=== PATIENT | male | born 1980 | race African-American/Black ===

== ENCOUNTER 2021-10-12 10:00 | Inpatient (IN) | payer MEDICARE ==
[2021-10-12] VITALS (15 sets, daily range): BP systolic 91–113; BP diastolic 42–69
[~2021-10-12] VITALS: Ht 190.5 cm; Wt 63.5 kg
[2021-10-12] MEDS ORDERED: SODIUM CHLORIDE 0.9% 1000ML 1,000 ML IV SCH ×3 (10:30→14:00)
[2021-10-12] MEDS ORDERED: LACTATED RINGER'S 1,000 ML INJ ONE (10:30)
[2021-10-12 10:45] LABS: BASOPHILS # (AUTO) 0.1 (0.0-0.1); BASOPHILS % 1.3 % (0.0-1.0); HEMATOCRIT 32.5 % (38.2-49.6); HEMOGLOBIN 10.6 g/dL (14.0-18.0); LYMPHOCYTES # (AUTO) 0.3 (1.0-3.2); LYMPHOCYTES % 5.1 % (18.0-39.1); MEAN CORPUSCULAR HEMOGLOBIN 29.4 pg (28-32); MEAN CORPUSCULAR HGB CONC 32.6 g/dL (31-35); MEAN CORPUSCULAR VOLUME 90.3 fL (81-99); MONOCYTES # (AUTO) 0.6 (0.2-0.8); MONOCYTES % 11.6 % (4.4-11.3); NEUTROPHILS # (AUTO) 4.3 (2.1-6.9); NEUTROPHILS % 81.1 % (38.7-80.0); RED CELL DISTRIBUTION WIDTH 13.9 % (11.7-14.4)
[2021-10-12 10:52] LABS: PLATELET COUNT 31 x10e3/uL (140-360)
[2021-10-12 11:03] LABS: ALBUMIN 2.6 g/dL (3.5-5.0); ALBUMIN/GLOBULIN RATIO 0.6 (0.8-2.0); ANION GAP 16.4 mmol/L (8-16); CALCIUM 9.2 mg/dL (8.4-10.2); CREATININE, SERUM 1.8 mg/dL (0.72-1.25); POTASSIUM 5.4 mmol/L (3.5-5.1)
[2021-10-12] MEDS: CEFEPIME 1 GM in SODIUM CHLORIDE 0.9% 50ML 50 ML IV SCH ×2 (11:11→23:55)
[2021-10-12 11:37] LABS: BAND NEUTROPHILS % (MANUAL) 11 %; LYMPHOCYTES % (MANUAL) 7 % (19-48); METAMYELOCYTES % (MANUAL) 5 % (0-0); MONOCYTES % (MANUAL) 7 % (3.4-9.0); MYELOCYTES % (MANUAL) 8 % (0-0); NEUTROPHILS % (MANUAL) 61 % (40-74); PROMYELOCYTES % (MANUAL) 1 % (0-0)
[2021-10-12 11:39] LABS: PLATELET ESTIMATE MARKEDLY DECREASED; PLATELET MORPHOLOGY COMMENT NORMAL; RBC MORPHOLOGY COMMENT NORMAL; TOXIC GRANULATION SLIGHT
[2021-10-12] MEDS ORDERED: VECURONIUM BROMIDE FOR INJ 20 MG VIAL ONE (12:14)
[2021-10-12] MEDS ORDERED: ETOMIDATE 2 MG/ML 10 ML INJ IV ONE (12:14)
[2021-10-12] MEDS ORDERED: WATER STERILE 10 ML VIAL ONE (12:14)
[2021-10-12 12:30] LABS: CLARITY,URINE CLOUDY (CLEAR); COLOR,URINE YELLOW (YELLOW)
[2021-10-12 12:31] LABS: KETONES,URINE NEGATIVE (NEGATIVE); LEUKOCYTE ESTERASE ,URINE NEGATIVE (NEGATIVE); NITRITE,URINE POSITIVE (NEGATIVE); PROTEIN,URINE DIPSTICK >=300 (NEGATIVE); URINE UROBILINOGEN 1 mg/dL (0.2 - 1)
[2021-10-12 12:42] LABS: BACTERIA,URINE MANY /HPF; EPITHELIAL CELLS,URINE FEW /LPF; RBC,URINE >50 /HPF (0-5); WBC,URINE (MAN) >50 /HPF (0-5)
[2021-10-12] MEDS: SODIUM CHLORIDE 0.9% 1000ML 1,000 ML IV SCH (15:00)
[2021-10-12] MEDS ORDERED: Vancomycin IV 1 GM in SODIUM CHLORIDE 0.9% 250ML 250 ML IV ONE (15:45)
[2021-10-12] MEDS: NOREPINEPHRINE 8 MG/D5W 250 ML 250 ML IV SCH ×2 (16:15→20:30)
[2021-10-12 17:20] LABS: BASOPHILS # (AUTO) 0.1 (0.0-0.1); BASOPHILS % 1.3 % (0.0-1.0); HEMATOCRIT 31.6 % (38.2-49.6); HEMOGLOBIN 9.8 g/dL (14.0-18.0); LYMPHOCYTES # (AUTO) 0.5 (1.0-3.2); LYMPHOCYTES % 8.1 % (18.0-39.1); MEAN CORPUSCULAR HEMOGLOBIN 29.2 pg (28-32); MONOCYTES # (AUTO) 0.5 (0.2-0.8); MONOCYTES % 8.6 % (4.4-11.3); RED BLOOD COUNT 3.36 x10e6/uL (4.3-5.7); RED CELL DISTRIBUTION WIDTH 14.6 % (11.7-14.4)
[2021-10-12 17:23] LABS: PLATELET COUNT 24 x10e3/uL (140-360)
[2021-10-12] MEDS ORDERED: ACETAMINOPHEN 1000 MG/100 ML IV PRN (17:30)
[2021-10-12] MEDS ORDERED: ONDANSETRON HCL INJ 2MG/ML 2ML 2 MG/ML VIAL IV PRN (17:30)
[2021-10-12 17:41] LABS: ALBUMIN 2.3 g/dL (3.5-5.0); ALBUMIN/GLOBULIN RATIO 0.7 (0.8-2.0); ANION GAP 18.3 mmol/L (8-16); CALCIUM 7.8 mg/dL (8.4-10.2); CREATININE, SERUM 1.69 mg/dL (0.72-1.25); POTASSIUM 5.3 mmol/L (3.5-5.1)
[2021-10-12 17:42] LABS: INR 1.44; PROTHROMBIN TIME 18.7 seconds (11.9-14.5)
[2021-10-12 17:43] LABS: PARTIAL THROMBOPLASTIN TIME 33.2 seconds (23.8-35.5)
[2021-10-12 17:44] LABS: ABG HCO3 29 mmol/L (22-26); ABG PCO2 85 mmHg (35-45); ABG PH 7.15 (7.35-7.45); ABG PO2 180 mmHg (80-105); ABG TCO2 32
[2021-10-12] MEDS ORDERED: SODIUM BICARBONATE 8.4% SYRING 50 ML ONE (19:52)
[2021-10-12] MEDS: VASOPRESSIN 60 UNIT in DEXTROSE 5% 50ML 57 ML IV PRN (20:00)
[2021-10-12] MEDS ORDERED: VASOPRESSIN INJ 20 UNIT/ML VIAL ONE ×2 (20:10→23:42)
[2021-10-12] MEDS ORDERED: MEROPENEM 1 GM in SODIUM CHLORIDE 0.9% 100 ML IV ONE (20:30)
[2021-10-12 21:00] LABS: HIV 1&2 AB SCREEN NON-REACTIVE (NONREACTIVE)
[2021-10-12] MEDS ORDERED: NOREPINEPHRINE 8 MG/D5W 250 ML 250 ML ONE (22:15)
[2021-10-12 23:11] LABS: ABG PH 7.28 (7.35-7.45)
[2021-10-12 23:12] LABS: ABG PCO2 77 mmHg (35-45); ABG PO2 161 mmHg (80-105)
[2021-10-12 23:13] LABS: ABG HCO3 36 mmol/L (22-26); ABG TCO2 38
[2021-10-12] MEDS ORDERED: DEXTROSE 5% 50ML 50 ML IV ONE (23:42)
[2021-10-13] VITALS (76 sets, daily range): BP systolic 62–121; BP diastolic 37–80
[2021-10-13] MEDS: SODIUM CHLORIDE 0.9% 1000ML 1,000 ML IV SCH ×3 (00:18→21:00)
[2021-10-13] MEDS: NOREPINEPHRINE 8 MG/D5W 250 ML 250 ML IV SCH ×2 (01:00→04:00)
[2021-10-13] MEDS ORDERED: AMIODARONE HCL 150 MG/100 ML BAG IV STA (01:04)
[2021-10-13] MEDS ORDERED: AMIODARONE 900MG 900 MG in Premix Bag 1 BAG IV SCH (01:15)
[2021-10-13 03:01] LABS: ABG PCO2 49 mmHg (35-45); ABG PH 7.31 (7.35-7.45)
[2021-10-13 03:02] LABS: ABG HCO3 24 mmol/L (22-26); ABG PO2 209 mmHg (80-105); ABG TCO2 26
[2021-10-13] MEDS ORDERED: CALCIUM CHLORIDE 10% 1.36 MEQ/ML 10ML SYR IV STA (05:00)
[2021-10-13] MEDS ORDERED: SOD POLYSTYRENE SULFONATE SUSP 15 GM/60 ML BTL PO ONE (05:00)
[2021-10-13] MEDS: PHENYLEPHRINE 10MG/ML VIAL 40 MG in DEXTROSE 5% 250ML 246 ML IV SCH ×2 (05:00→09:34)
[2021-10-13] MEDS ORDERED: DEXTROSE 50% SYRINGE 50 ML IV PRN (05:00)
[2021-10-13 05:08] LABS: BASOPHILS # (AUTO) 0.1 (0.0-0.1); BASOPHILS % 1.2 % (0.0-1.0); HEMATOCRIT 27.3 % (38.2-49.6); HEMOGLOBIN 8.9 g/dL (14.0-18.0); LYMPHOCYTES # (AUTO) 0.5 (1.0-3.2); LYMPHOCYTES % 9.7 % (18.0-39.1); MEAN CORPUSCULAR HEMOGLOBIN 29.6 pg (28-32); MEAN CORPUSCULAR HGB CONC 32.6 g/dL (31-35); MEAN CORPUSCULAR VOLUME 90.7 fL (81-99); MONOCYTES # (AUTO) 0.3 (0.2-0.8); MONOCYTES % 5.8 % (4.4-11.3); NEUTROPHILS # (AUTO) 4.2 (2.1-6.9); NEUTROPHILS % 81.9 % (38.7-80.0); RED BLOOD COUNT 3.01 x10e6/uL (4.3-5.7); RED CELL DISTRIBUTION WIDTH 14.5 % (11.7-14.4)
[2021-10-13] MEDS ORDERED: PHENYLEPHRINE HCL IN 0.9% NACL 250 ML IV ONE ×2 (05:11→08:11)
[2021-10-13 05:12] LABS: PLATELET COUNT 14 x10e3/uL (140-360)
[2021-10-13] MEDS ORDERED: SOD POLYSTYRENE SULFONATE SUSP 15 GM/60 ML BTL ONE ×2 (05:21→05:22)
[2021-10-13] MEDS ORDERED: CALCIUM CHLORIDE 10% SYRINGE 10 ML IV ONE ×2 (05:21→08:35)
[2021-10-13] MEDS ORDERED: DEXTROSE 50% SYRINGE 50 ML IV ONE (05:22)
[2021-10-13] MEDS ORDERED: INSULIN REGULAR, HUMAN 100 UNIT/1 ML ONE (05:23)
[2021-10-13 05:26] LABS: ANION GAP 16.8 mmol/L (8-16); CREATININE, SERUM 2.12 mg/dL (0.72-1.25)
[2021-10-13 05:29] LABS: CALCIUM 6.5 mg/dL (8.4-10.2); POTASSIUM 7.8 mmol/L (3.5-5.1)
[2021-10-13 05:46] LABS: ALBUMIN 1.8 g/dL (3.5-5.0); BILIRUBIN,DIRECT 1.4 mg/dL (0.0-0.5)
[2021-10-13 05:47] LABS: ABG HCO3 27 mmol/L (22-26); ABG PCO2 79 mmHg (35-45); ABG PH 7.14 (7.35-7.45); ABG PO2 280 mmHg (80-105); ABG TCO2 29
[2021-10-13 06:12] LABS: MAGNESIUM 2.4 MG/DL (1.3-2.1); PHOSPHORUS 8.6 MG/DL (2.3-4.7)
[2021-10-13 07:00] LABS: BAND NEUTROPHILS % (MANUAL) 4 %; LYMPHOCYTES % (MANUAL) 11 % (19-48); MONOCYTES % (MANUAL) 4 % (3.4-9.0); MYELOCYTES % (MANUAL) 8 % (0-0); NEUTROPHILS % (MANUAL) 58 % (40-74); NUCLEATED RED BLOOD CELLS 1; PROMYELOCYTES % (MANUAL) 1 % (0-0)
[2021-10-13 07:01] LABS: METAMYELOCYTES % (MANUAL) 11 % (0-0)
[2021-10-13 07:09] LABS: PLATELET ESTIMATE MARKEDLY DECREASED; PLATELET MORPHOLOGY COMMENT NORMAL
[2021-10-13 07:10] LABS: HYPOCHROMASIA SLIGHT; RBC MORPHOLOGY COMMENT NORMAL
[2021-10-13 08:03] LABS: ABG HCO3 16 mmol/L (22-26); ABG PCO2 43 mmHg (35-45); ABG PH 7.16 (7.35-7.45); ABG PO2 482 mmHg (80-105); ABG TCO2 17
[2021-10-13] MEDS ORDERED: NOREPINEPHRINE 8 MG/D5W 250 ML 250 ML IV SCH (08:15)
[2021-10-13] MEDS ORDERED: SODIUM BICARBONATE 8.4% 150 ML in DEXTROSE 5% 1,000 ML IV ONE (08:15)
[2021-10-13] MEDS ORDERED: SODIUM BICARBONATE 8.4% INJ 50 ML SYR IV ONE (08:30)
[2021-10-13] MEDS ORDERED: EPINEPHRINE HCL SYRINGE ONE (08:50)
[2021-10-13] MEDS: NOREPINEPHRINE INJ 4MG/4ML 16 MG in DEXTROSE 5% 250ML 250 ML IV SCH ×2 (09:31→18:05)
[2021-10-13] MEDS: CEFEPIME 1 GM in SODIUM CHLORIDE 0.9% 50ML 50 ML IV SCH ×2 (10:29→21:00)
[2021-10-13] MEDS: FAMOTIDINE 20 MG/2 ML VIAL IV SCH ×2 (10:29→17:11)
[2021-10-13] MEDS ORDERED: SODIUM CHLORIDE 0.9% 50ML 50 ML ONE (11:08)
[2021-10-13] MEDS ORDERED: SODIUM BICARBONATE 8.4% SYRING 100 ML ONE (11:31)
[2021-10-13] MEDS: SODIUM BICARBONATE 8.4% 50 ML in SODIUM CHLORIDE 0.45% 1,000 ML IV SCH ×2 (11:55→21:30)
[2021-10-13] MEDS ORDERED: HEPARIN SOD (PORCINE) 1000 UNIT/ML SDV IV PRN (14:30)
[2021-10-13] MEDS ORDERED: SODIUM CHLORIDE 0.9% 1000ML 2,000 ML IV PRN (14:30)
[2021-10-13] MEDS ORDERED: MANNITOL 25% 12.5GM/50 ML VIAL IV PRN (14:30)
[2021-10-13 15:49] LABS: ABG HCO3 13 mmol/L (22-26); ABG PCO2 26 mmHg (35-45); ABG PH 7.31 (7.35-7.45); ABG PO2 181 mmHg (80-105); ABG TCO2 14
[2021-10-13] MEDS: VASOPRESSIN 60 UNIT in DEXTROSE 5% 50ML 57 ML IV PRN (18:04)
[2021-10-13] MEDS: EPINEPHRINE HCL 1:1000 1ML 4 MG in DEXTROSE 5% 250ML 250 ML IV SCH (20:45)
[2021-10-14] VITALS (45 sets, daily range): BP systolic 37–107; BP diastolic 23–66
[2021-10-14] MEDS: NOREPINEPHRINE INJ 4MG/4ML 16 MG in DEXTROSE 5% 250ML 250 ML IV SCH (04:00)
[2021-10-14 04:26] LABS: ABG HCO3 12 mmol/L (22-26); ABG PCO2 26 mmHg (35-45); ABG PH 7.26 (7.35-7.45); ABG PO2 153 mmHg (80-105); ABG TCO2 12
[2021-10-14] MEDS: VASOPRESSIN 60 UNIT in DEXTROSE 5% 50ML 57 ML IV PRN (04:30)
[2021-10-14] MEDS: SODIUM CHLORIDE 0.9% 1000ML 1,000 ML IV SCH (04:35)
[2021-10-14 04:41] LABS: BASOPHILS % 0.2 % (0.0-1.0); HEMATOCRIT 23.3 % (38.2-49.6); HEMOGLOBIN 7.4 g/dL (14.0-18.0); LYMPHOCYTES # (AUTO) 0.5 (1.0-3.2); LYMPHOCYTES % 4.4 % (18.0-39.1); MEAN CORPUSCULAR HEMOGLOBIN 29.5 pg (28-32); MEAN CORPUSCULAR HGB CONC 31.8 g/dL (31-35); MEAN CORPUSCULAR VOLUME 92.8 fL (81-99); MONOCYTES # (AUTO) 0.5 (0.2-0.8); MONOCYTES % 4.3 % (4.4-11.3); RED BLOOD COUNT 2.51 x10e6/uL (4.3-5.7); RED CELL DISTRIBUTION WIDTH 15.1 % (11.7-14.4)
[2021-10-14 04:42] LABS: PLATELET COUNT 18 x10e3/uL (140-360)
[2021-10-14 05:00] LABS: ALBUMIN 1.6 g/dL (3.5-5.0); ALBUMIN/GLOBULIN RATIO 0.7 (0.8-2.0); ANION GAP 28.5 mmol/L (8-16); CREATININE, SERUM 2.08 mg/dL (0.72-1.25)
[2021-10-14 05:01] LABS: CALCIUM 5.3 mg/dL (8.4-10.2); POTASSIUM 6.5 mmol/L (3.5-5.1)
[2021-10-14] MEDS ORDERED: CALCIUM CHLORIDE 10% 1.36 MEQ/ML 10ML SYR IV STA (05:50)
[2021-10-14] MEDS ORDERED: DEXTROSE 5% 1,000 ML IV ONE (06:05)
[2021-10-14] MEDS ORDERED: SODIUM BICARBONATE 8.4% SYRING 150 ML ONE ×2 (06:05→07:57)
[2021-10-14] MEDS ORDERED: SODIUM BICARBONATE 8.4% INJ 50 ML SYR IV ONE (07:00)
[2021-10-14] MEDS ORDERED: SODIUM BICARBONATE 8.4% 150 ML in DEXTROSE 5% 1,000 ML IV SCH (07:30)
[2021-10-14] MEDS ORDERED: DEXTROSE 50% SYRINGE 50 ML IV STA (07:30)
[2021-10-14] MEDS ORDERED: CALCIUM CHLORIDE 10% SYRINGE 10 ML IV ONE (07:42)
[2021-10-14] MEDS ORDERED: INSULIN REGULAR, HUMAN 100 UNIT/1 ML ONE (07:44)
[2021-10-14] MEDS ORDERED: CALCIUM CHLORIDE 13.6 MEQ in SODIUM CHLORIDE 0.9% 100 ML 100 ML IV ONE (08:00)
[2021-10-14] MEDS ORDERED: INSULIN REGULAR, HUMAN 100 UNIT/1 ML SQ ONE (08:00)
[2021-10-14] MEDS: FAMOTIDINE 20 MG/2 ML VIAL IV SCH (08:12)
[2021-10-14] MEDS: CEFEPIME 1 GM in SODIUM CHLORIDE 0.9% 50ML 50 ML IV SCH (08:12)
[2021-10-14 08:28] LABS: ABG HCO3 27 mmol/L (22-26); ABG PCO2 40 mmHg (35-45); ABG PH 7.44 (7.35-7.45); ABG PO2 520 mmHg (80-105); ABG TCO2 29
[2021-10-14 09:13] LABS: BAND NEUTROPHILS % (MANUAL) 8 %; LYMPHOCYTES % (MANUAL) 15 % (19-48); METAMYELOCYTES % (MANUAL) 7 % (0-0); MONOCYTES % (MANUAL) 25 % (3.4-9.0); MYELOCYTES % (MANUAL) 4 % (0-0); NEUTROPHILS % (MANUAL) 41 % (40-74); NUCLEATED RED BLOOD CELLS 1; PLATELET ESTIMATE MARKEDLY DECREASED
[2021-10-14 09:14] LABS: RBC MORPHOLOGY COMMENT NORMAL
[2021-10-14] MEDS: PHENYLEPHRINE 10MG/ML VIAL 40 MG in DEXTROSE 5% 250ML 246 ML IV SCH (09:33)
[2021-10-14] MEDS: EPINEPHRINE HCL 1:1000 1ML 4 MG in DEXTROSE 5% 250ML 250 ML IV SCH (09:36)
[2021-10-14] MEDS ORDERED: SODIUM CHLORIDE 0.9% 250ML 250 ML ONE (10:45)
[2021-10-14] MEDS ORDERED: DOPAmine/D5W 1.6 MG/ML 400 MG/250ML PREMIX IV ONE (12:49)
[2021-10-14] MEDS ORDERED: SODIUM BICARBONATE 8.4% INJ 50 ML SYR ONE (12:49)
[2021-10-14] MEDS ORDERED: CALCIUM CHLORIDE 10% 1.36 MEQ/ML 10ML SYR IV ONE (12:49)
[2021-10-14] MEDS ORDERED: Vancomycin IV 1 GM in SODIUM CHLORIDE 0.9% 250ML 250 ML IV SCH (17:00)
== END 2021-10-14 18:32 | disposition expired | DRG 871 ==
LOC: ER 10:05 → ERHOLD 14:10 → ICU 19:31
PROC: 3E043XZ Introduction of Vasopressor into Central Vein, Percutaneous Approach (ICD-10-PCS; principal; 2021-10-12)
PROC: 04HY32Z Insertion of Monitoring Device into Lower Artery, Percutaneous Approach (ICD-10-PCS; 2021-10-12)
PROC: 5A09357 Assistance with Respiratory Ventilation, Less than 24 Consecutive Hours, Continuous Positive Airway Pressure (ICD-10-PCS; 2021-10-12)
PROC: 30243R1 Transfusion of Nonautologous Platelets into Central Vein, Percutaneous Approach (ICD-10-PCS; 2021-10-12)
PROC: 02HV33Z Insertion of Infusion Device into Superior Vena Cava, Percutaneous Approach (ICD-10-PCS; 2021-10-12)
PROC: 0BH18EZ Insertion of Endotracheal Airway into Trachea, Via Natural or Artificial Opening Endoscopic (ICD-10-PCS; 2021-10-13)
PROC: 5A1945Z Respiratory Ventilation, 24-96 Consecutive Hours (ICD-10-PCS; 2021-10-13)
PROC: 5A1D70Z Performance of Urinary Filtration, Intermittent, Less than 6 Hours Per Day (ICD-10-PCS; 2021-10-13)
DX: A41.01 Sepsis due to Methicillin susceptible Staphylococcus aureus (principal); R65.21 Severe sepsis with septic shock; G93.41 Metabolic encephalopathy; K72.00 Acute and subacute hepatic failure without coma; I50.21 Acute systolic (congestive) heart failure; N17.0 Acute kidney failure with tubular necrosis; J69.0 Pneumonitis due to inhalation of food and vomit; E43 Unspecified severe protein-calorie malnutrition; G11.8 Other hereditary ataxias; R18.8 Other ascites; G32.81 Cerebellar ataxia in diseases classified elsewhere; E87.1 Hypo-osmolality and hyponatremia; N39.0 Urinary tract infection, site not specified; Z68.1 Body mass index [BMI] 19.9 or less, adult; R64 Cachexia; N13.6 Pyonephrosis; I46.9 Cardiac arrest, cause unspecified; D50.0 Iron deficiency anemia secondary to blood loss (chronic); Z66 Do not resuscitate; I11.0 Hypertensive heart disease with heart failure; E78.5 Hyperlipidemia, unspecified; D69.59 Other secondary thrombocytopenia; R31.29 Other microscopic hematuria; E83.42 Hypomagnesemia; E83.51 Hypocalcemia; E88.09 Other disorders of plasma-protein metabolism, not elsewhere classified; L89.150 Pressure ulcer of sacral region, unstageable
CPT/HCPCS: 31500; 36415; 36569; 36600; 70450; 71045; 71250; 74018; 74176; 80048; 80053; 80076; 80202; 81001; 82805; 82948; 83605; 83735; 84100; 84132; 85025; 85610; 85730; 86705; 86706; 86850; 86900; 87040; 87071; 87086; 87186; 87205; 87340; 87390; 93005; 93306; 94002; 94003; 94799; 99285; G0433; G0435; J0171; J0692; J1644; J1817; J2185; J2370; J3370; J7030; J7050; J7070; J7121; J7799; P9034; U0002